=== PATIENT | male | born 1990 | race Caucasian/White ===

== ENCOUNTER 2020-12-13 18:36 | Emergency (ER) | payer SELFPAY ==
[2020-12-13] MEDS ORDERED: Amoxicillin/Potassium Clav 875 MG TAB ONE (19:10)
[2020-12-13] MEDS ORDERED: Boostrix 0.5 ML (Tdap) VIAL ONE (19:10)
== END 2020-12-13 19:44 | disposition home or self-care (01) ==
LOC: MADERS 18:36
DX: S01.81XA Laceration without foreign body of other part of head, initial encounter (principal); R50.9 Fever, unspecified; Z71.6 Tobacco abuse counseling; F17.210 Nicotine dependence, cigarettes, uncomplicated; W50.0XXA Accidental hit or strike by another person, initial encounter
CPT/HCPCS: 90471; 90715; 99406